=== PATIENT | female | born 1950 | race Caucasian/White ===

== ENCOUNTER → 2020-12-26 | Outpatient (REF) | payer MEDICARE, BC | LOC: M LAB REF 18:31 | PROVIDERS: ATTEND Surgery | DX: R51.9 Headache, unspecified (principal) ==

== ENCOUNTER 2022-12-21 12:12 | Day surgery (SDC) | payer MEDICARE, BC ==
[~2022-12-21] VITALS: Ht 160 cm; Wt 62.6 kg
[2022-12-21] MEDS: NS 1,000 ML IV ONE (06:00)
[~2022-12-21 12:12] MED LIST: ALEN70TA82 PO; ATOR1TAB19 PO; CALCTAB54 PO; CITA20TA6 PO; LISI10TA22 PO; OMEGCAP9 PO; PRED5PAK2 PO; VITMTA PO
[2022-12-21] MEDS ORDERED: LIDOCAINE 2% 100MG/5ML SDV (FOR ANES.) As Ordered ONE (15:15)
[2022-12-21] MEDS ORDERED: propofoL 200 MG/20 ML VIAL As Ordered ONE ×2 (15:15→15:16)
[2022-12-21] MEDS ORDERED: fentaNYL 100 MCG/2 ML INJECTION As Ordered ONE (15:16)
[2022-12-21 16:14] VITALS: BP 101/49
== END 2022-12-21 16:15 | disposition home or self-care (01) ==
LOC: M OPP 12:12
PROVIDERS: ATTEND Internal Medicine Gastroenterology
DX: D12.6 Benign neoplasm of colon, unspecified (principal); K64.0 First degree hemorrhoids; K57.30 Diverticulosis of large intestine without perforation or abscess without bleeding; R19.5 Other fecal abnormalities; D50.9 Iron deficiency anemia, unspecified
CPT/HCPCS: 43239; 45380; 88305; J3010